=== PATIENT | female | born 1985 ===

== ENCOUNTER 2018-07-08 20:20 | Emergency (ER) | payer BC ==
[2018-07-08 20:26] VITALS: O2SAT 99
[2018-07-08] MEDS ORDERED: DiphenhydrAMINE 50 mg/ml Inj IV STA (21:02)
[2018-07-08] MEDS ORDERED: Sodium Chloride 0.9% 1,000 ML IV STA (21:03)
[2018-07-08] MEDS ORDERED: DiphenhydrAMINE 50 mg/ml Inj ONE (21:20)
[2018-07-08 22:14] LABS: BASO # 0.1 K/uL (0.0-0.2); BASO % 0.7 % (0.0-2.0); EOS # 0.2 K/uL (0.0-0.7); EOS % 2.4 % (0.0-4.0); HEMOGLOBIN 13.2 g/dL (12.0-16.0); LYMPH # 1.9 K/uL (1.0-4.3); LYMPH % 24.8 % (20.0-40.0); MEAN CELL VOLUME 84.5 fl (81.0-99.0); MEAN CORPUSCULAR HEMOGLOBIN 27.8 pg (27.0-31.0); MEAN CORPUSCULAR HGB CONC 32.9 g/dL (33.0-37.0); MEAN PLATELET VOLUME 8.8 fl (7.2-11.7); MONO # 0.8 K/uL (0.0-0.8); MONO % 9.9 % (0.0-10.0); NEUT # 4.7 K/uL (1.8-7.0); NEUT % 62.2 % (50.0-75.0); RBC 4.74 Mil/uL (3.80-5.20); RED CELL DISTRIBUTION WIDTH 14.3 % (11.5-14.5); WHITE BLOOD COUNT 7.6 K/uL (4.8-10.8)
[2018-07-08 22:23] LABS: ALB/GLOB RATIO 1.5 (1.0-2.1); ALBUMIN 4.1 g/dL (3.5-5.0); ALT/SGPT 28 U/L (9-52); AST/SGOT 28 U/L (14-36); BLOOD UREA NITROGEN 12 mg/dl (7-17); CALCIUM 9.2 mg/dL (8.4-10.2); GFR NON-AFRICAN AMERICAN > 60
--- NOTE | 2018-07-08 22:29 | ED PDOC ---
HPI: Headache Time Seen by Provider: 07/08/18 20:48 Chief Complaint (Nursing): Seizure Chief Complaint (Provider): Headache History Per: Patient History/Exam Limitations: no limitations Onset/Duration Of Symptoms: Hrs (x2) Current Symptoms Are (Timing): Still Present Associated Symptoms: denies: Photophobia Additional Complaint(s): 33 year old female, with a past medical history of ovarian cancer undergoing radiation treatment, migraines, and seizures disorder, presenting with headache. Family member reports patient had a seizure and fell hitting her head. Patient states in April, she was taken off of Topamax which she took for seizure disorder. PMD: [place] Past Medical History Reviewed: Historical Data, Nursing Documentation, Vital Signs Vital Signs: Last Vital Signs Temp 99 F 07/08/18 20:23 Pulse 81 07/08/18 20:23 Resp 16 07/08/18 20:23 BP 143/77 07/08/18 20:23 Pulse Ox 99 07/08/18 20:23 - Medical History PMH: Migraine, Seizures Other PMH: Ovarian cancer - Surgical History Surgical History: No Surg Hx - Family History Family History: States: Unknown Family Hx - Social History Current smoker - smoking cessation education provided: No Alcohol: None Drugs: Denies - Home Medications Home Medications: Ambulatory Orders Medication Instructions Recorded Acetaminophen/Butalbital/Caf 1 - 2 tab PO Q6 PRN #8 tab 07/08/18 [Fioricet] - Allergies Allergies/Adverse Reactions: Allergies Allergy/AdvReac Type Severity Reaction Status Date / Time No Known Allergies Allergy Verified 07/08/18 20:23 Review of Systems ROS Statement: Except As Marked, All Systems Reviewed And Found Negative Neurological: Positive for: Seizures, Headache Physical Exam - Reviewed Nursing Documentation Reviewed: Yes Vital Signs Reviewed: Yes - Physical Exam Appears: Positive for: No Acute Distress, Uncomfortable Head Exam: Positive for: ATRAUMATIC, NORMOCEPHALIC. Negative for: NORMAL INSPECTION (small contusion to the occiput of the head approx 1cm) Skin: Positive for: Normal Color, Warm, Dry Eye Exam: Positive for: Other (Photosensitivity but no phobia) ENT: Positive for: Other (Sound sensitivity) Neck: Positive for: Normal, Painless ROM Cardiovascular/Chest: Positive for: Regular Rate, Rhythm. Negative for: Murmur Respiratory: Positive for: Normal Breath Sounds. Negative for: Wheezing, Respiratory Distress Extremity: Positive for: Normal ROM Neurologic/Psych: Positive for: Alert, Oriented. Negative for: Motor/Sensory Deficits - Laboratory Results Result Diagrams: 07/08/18 21:48 07/08/18 21:48 - ECG O2 Sat by Pulse Oximetry: 99 (RA) Pulse Ox Interpretation: Normal Medical Decision Making Medical Decision Making: Initial Impression: 33 y/o with migraines insetting of seizure Initial Plan: --CT head --CMP --ED urine dipstick --CBC --Benadryl 50mg IV --Sodium chloride 1000mL IV --Reglan 10mg IV --Urinalysis CT Head: FINDINGS: Brain: Unremarkable. No hemorrhage. No significant white matter disease. No edema. Ventricles: Unremarkable. No ventriculomegaly. Bones/joints: Unremarkable. No acute fracture. Soft tissues: Unremarkable. Sinuses: Unremarkable as visualized. No acute sinusitis. Mastoid air cells: Unremarkable as visualized. No mastoid effusion. IMPRESSION: No acute intracranial findings. 23:58 Patient reports marketed improvement in symptoms. She states that she will follow up with her neurologist in [place]. Upon provider evaluation, patient is medically stable and ready for discharge. Patient encouraged to ensure follow up with neurologist and PMD. Return precautions were given. Scribe Attestation: Documented by Hari Quinteros acting as a scribe for Luis Ramsay MD. Provider Scribe Attestation: All medical record entries made by the Scribe were at my direction and personally dictated by me. I have reviewed the chart and agree that the record accurately reflects my personal performance of the history, physical exam, medical decision making, and the department course for this patient. I have also personally directed, reviewed, and agree with the discharge instructions and disposition. Disposition - Clinical Impression Clinical Impression: Seizure, Migraine - Patient ED Disposition Is Patient to be Admitted: No - Disposition Disposition: Routine/Home Disposition Time: 00:00 Condition: IMPROVED Prescriptions: Acetaminophen/Butalbital/Caf [Fioricet] 1 - 2 tab PO Q6 PRN #8 tab PRN Reason: Headache Instructions: Migraine Headache (DC), Seizures Forms: [facility] (Greek), [facility] ED School/Work Excuse
[2018-07-09 00:08] VITALS: BP 135/79; PULSE 65; RESP 18; TEMP 98.6
--- NOTE | 2018-07-09 08:16 | CT ---
Date of service: 07/08/2018 PROCEDURE: CT HEAD WITHOUT CONTRAST. HISTORY: headache COMPARISON: None available. TECHNIQUE: Axial computed tomography images were obtained through the head/brain without intravenous contrast. Radiation dose: Total exam DLP = 851 mGy-cm. This CT exam was performed using one or more of the following dose reduction techniques: Automated exposure control, adjustment of the mA and/or kV according to patient size, and/or use of iterative reconstruction technique. FINDINGS: HEMORRHAGE: No intracranial hemorrhage. BRAIN: No mass effect or edema. No atrophy or chronic microvascular ischemic changes. VENTRICLES: Unremarkable. No hydrocephalus. CALVARIUM: Unremarkable. PARANASAL SINUSES: Unremarkable as visualized. No significant inflammatory changes. MASTOID AIR CELLS: Unremarkable as visualized. No inflammatory changes. OTHER FINDINGS: None. IMPRESSION: Normal CT of the Head. Concordant results (preliminary interpretation) provided by [facility].
== END 2018-07-09 00:41 | disposition home or self-care (01) ==
LOC: H.ER 20:20
DX: R56.9 Unspecified convulsions (principal); G43.909 Migraine, unspecified, not intractable, without status migrainosus; Z85.43 Personal history of malignant neoplasm of ovary
CPT/HCPCS: 70450; 80053; 85025; 96360; 99285; J1200; J2765; J7030